=== PATIENT | male | born 1995 | race African-American/Black ===

== ENCOUNTER 2017-01-22 00:34 | Emergency (ER) | payer OTHER ==
[~2017-01-22] VITALS: Ht 182.9 cm; Wt 68.0 kg
[2017-01-22 02:40] VITALS: BP 105/64
[2017-01-22] MEDS ORDERED: IBUPROFEN 400 MG TABLET PO ONE (05:00)
[2017-01-22] MEDS ORDERED: IBUPROFEN 400 MG TABLET ONE (05:24)
== END 2017-01-22 05:29 | disposition home or self-care (01) ==
LOC: ER 00:38
DX: S83.92XA Sprain of unspecified site of left knee, initial encounter (principal); R51 Headache; V47.5XXA Car driver injured in collision with fixed or stationary object in traffic accident, initial encounter; Y93.89 Activity, other specified; Y92.488 Other paved roadways as the place of occurrence of the external cause; Y99.8 Other external cause status
CPT/HCPCS: 73564; 99284; A4606; Z7610